=== PATIENT | female | born 2000 | race Caucasian/White ===

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

== ENCOUNTER 2018-11-13 11:07 | Emergency (ER) | payer OTHER ==
[2018-11-13 12:48] VITALS: BP 105/66
--- NOTE | 2018-11-13 13:00 | UC ---
Respiratory Complaint HPI - HPI Summary HPI Summary: The patient is a 18-year-old female with about a 2 day history of fever chills nasal congestion cough and sore throat. Last night she had his but none today. She states her chest feels tight but she has no chest pain. - History of Current Complaint Chief Complaint: UCGeneralIllness Stated Complaint: ACHES,COUGH,ST Time Seen by Provider: 11/13/18 12:45 Hx Obtained From: Patient Hx Last Menstrual Period: 10/30/18 Onset/Duration: Gradual Onset, Lasting Days Timing: Constant Severity Initially: Mild Severity Currently: Moderate Pain Intensity: 4 Pain Scale Used: 0-10 Numeric Character: Cough: Nonproductive Aggravating Factors: Nothing Associated Signs And Symptoms: Positive: Fever, Chills, Nasal Congestion - Allergies/Home Medications Allergies/Adverse Reactions: Allergies Allergy/AdvReac Type Severity Reaction Status Date / Time Sulfa (Sulfonamide Allergy Hives Verified 11/13/18 12:46 Antibiotics) PMH/Surg Hx/FS Hx/Imm Hx Previously Healthy: Yes Respiratory History: Bronchitis - Surgical History Surgical History: Yes Surgery Procedure, Year, and Place: t/a - Family History Known Family History: Positive: Hypertension Family History: family hx of HTN - Social History Alcohol Use: Occasionally Substance Use Type: None Smoking Status (MU): Never Smoked Tobacco - Immunization History Most Recent Influenza Vaccination: 2016 Most Recent Tetanus Shot: UTD Most Recent Pneumonia Vaccination: N/A Vaccination Up to Date: Yes Review of Systems All Other Systems Reviewed And Are Negative: Yes Constitutional: Positive: Fever, Chills Skin: Positive: Negative Eyes: Positive: Negative ENT: Positive: Sore Throat, Nasal Discharge, Sinus Congestion Respiratory: Positive: Cough Cardiovascular: Positive: Negative Gastrointestinal: Positive: Negative Genitourinary: Positive: Negative Motor: Positive: Negative Neurovascular: Positive: Negative Musculoskeletal: Positive: Myalgia Neurological: Positive: Negative Psychological: Positive: Negative Physical Exam Triage Information Reviewed: Yes Appearance: Well-Appearing, No Pain Distress, Well-Nourished Vital Signs: Initial Vital Signs Temp 98.9 F 11/13/18 12:44 Pulse 86 11/13/18 12:44 Resp 17 11/13/18 12:44 BP 105/66 11/13/18 12:44 Pulse Ox 99 11/13/18 12:44 Vital Signs Reviewed: Yes Eyes: Positive: Conjunctiva Clear ENT: Positive: Hearing grossly normal, Pharyngeal erythema, Nasal congestion, Nasal drainage, Uvula midline. Negative: Tonsillar swelling, Tonsillar exudate , Trismus, Muffled voice, Hoarse voice, Sinus tenderness Neck: Positive: Supple, Nontender, No Lymphadenopathy Respiratory: Positive: Lungs clear, Normal breath sounds, No respiratory distress, No accessory muscle use Cardiovascular: Positive: RRR, No Murmur, Pulses Normal Abdomen Description: Positive: Nontender Musculoskeletal: Positive: ROM Intact, No Edema Neurological: Positive: Alert Psychological Exam: Normal Skin Exam: Normal UC Diagnostic Evaluation - Laboratory O2 Sat by Pulse Oximetry: 99 - normal/not hypoxic ABG Interpretation: strep(-), influenza (-) Respiratory Course/Dx - Differential Dx/Diagnosis Provider Diagnosis: Viral upper respiratory illness Discharge - Sign-Out/Discharge Documenting (check all that apply): Patient Departure All imaging exams completed and their final reports reviewed: No Studies - Discharge Plan Condition: Stable Disposition: HOME Prescriptions: Benzonatate CAP* [Tessalon CAP*] 100 - 200 mg PO TID PRN #28 cap PRN Reason: Cough Patient Education Materials: Upper Respiratory Infection (ED) Forms: *Work Release Referrals: Azalia Magallanes MD [Primary Care Provider] - If Needed Additional Instructions: recheck in 4 days if not better - Billing Disposition and Condition Condition: STABLE Disposition: Home
== END 2018-11-13 13:32 | disposition home or self-care (01) ==
LOC: UCCORT 11:07
DX: J06.9 Acute upper respiratory infection, unspecified (principal); Z88.1 Allergy status to other antibiotic agents
CPT/HCPCS: 87651; 99212; G0463

== ENCOUNTER 2019-07-26 11:35 | Emergency (ER) | payer OTHER ==
[2019-07-26 12:38] VITALS: BP 126/67
--- NOTE | 2019-07-26 12:39 | UC ---
Allergic Reaction HPI - HPI Summary HPI Summary: 19 y/o female presents to the urgent care c/o woke up this morning with her upper lip swollen. She took Benadryl about 1hr ago with slight relief. She feels uncomfortable to smile or talk due to skin tightness. She ate a fish last night, but she has eaten fish before. She didn't go outside last night. She was studying. She denies change in make up, facial creams or lotions, eating something different, change in detergents or medications. She is allergic to sulfa, but she has not taken any medication lately. She reports she has taken e- cigarettes "[place]" for the past month, but she stop using it about 1 week ago. Denies difficulty swallowing, hoarseness, respiratory distress, SOB, chest pain, abdominal pain, N/V/d, rashes or hives. - History of Current Complaint Chief Complaint: UCGeneralIllness Stated Complaint: SKIN CONCERN Time Seen by Provider: 07/26/19 12:36 Hx Obtained From: Patient Hx Last Menstrual Period: IUD in place ?: No Onset/Duration: Sudden Onset, Lasting Hours - 4hrs woke up w/ upper lip swollen , Still Present Severity Initially: Moderate Severity Currently: Mild Pain Intensity: 0 Pain Scale Used: 0-10 Numeric Location: Discrete @ - upper lip swollen Aggravating Factor(s): Nothing Alleviating Factor(s): Antihistamines - Benadryl PO about 1hr ago Associated Signs And Symptoms: Positive: Negative. Negative: Abdominal Pain, Chest Pain, Cough Wheezing, Diaphoresis, Difficulty Breathing, Hoarseness, Lightheadedness, Nausea, Rash, Throat Tightening, Vomiting - Related Hx Possible Reaction To: Unknown - Allergies/Home Medications Allergies/Adverse Reactions: Allergies Allergy/AdvReac Type Severity Reaction Status Date / Time Sulfa (Sulfonamide Allergy Hives Verified 07/26/19 12:38 Antibiotics) Home Medications: Home Medications diphenhydrAMINE HCl [Benadryl Allergy 25 MG CAP] 25 mg PO PRN 07/26/19 [History] PMH/Surg Hx/FS Hx/Imm Hx Previously Healthy: Yes - Pt denies PMHX - Surgical History Surgical History: Yes Surgery Procedure, Year, and Place: t/a - Family History Known Family History: Positive: Hypertension Family History: family hx of HTN - Social History Occupation: Employed Full-time Lives: With Family Alcohol Use: Occasionally Substance Use Type: None Smoking Status (MU): Current Some Day Smoker Type: eCigarettes Amount Used/How Often: JUUL socially - Immunization History Most Recent Influenza Vaccination: 2016 Most Recent Tetanus Shot: UTD Most Recent Pneumonia Vaccination: N/A Vaccination Up to Date: Yes Review of Systems All Other Systems Reviewed And Are Negative: Yes Constitutional: Positive: Negative Skin: Positive: Other - upper lip swollen when she woke up Eyes: Positive: Negative ENT: Positive: Negative Respiratory: Positive: Negative Cardiovascular: Positive: Negative Gastrointestinal: Positive: Negative Genitourinary: Positive: Negative Motor: Positive: Negative Neurovascular: Positive: Negative Musculoskeletal: Positive: Negative Neurological: Positive: Negative Psychological: Positive: Negative Is Patient Immunocompromised?: No Physical Exam - Summary Physical Exam Summary: Vital Signs Reviewed: Yes General: well appearing, well nourished female adolescent in no acute apparent pain distress, sitting comfortably on examining table Eye Exam: Normal Eyes: Positive: Conjunctiva Clear - PERRLA< EOMI, fundi grossly normal ENT: Positive: Normal ENT inspection, Hearing grossly normal, Pharynx normal, No B/l tonsilar enlargement, uvula in the midline, TMs normal Neck: Positive: Supple, Nontender, No Lymphadenopathy Respiratory: Positive: Chest non-tender, Lungs clear, Normal breath sounds, No respiratory distress Cardiovascular: Positive: RRR, No Murmur, Pulses Normal, Brisk Capillary Refill Abdomen Description: Positive: Nontender, No Organomegaly, Soft. Negative: CVA Tenderness (R), CVA Tenderness (L) Bowel Sounds: Positive: Present Musculoskeletal: Positive: Strength Intact, ROM Intact, No Edema Neurological: Positive: Alert, Muscle Tone Normal Psychological Exam: Normal Skin: Positive: Positive upper lip w/ moderate swelling, no erythema, no tenderness to palpation, no drainage or breaks in the skin observed, No hives or rash observed. No facial swelling, no eye or facial drooping, pulses WNL, capillary refill brisk, sensation WNL. Triage Information Reviewed: Yes Vital Signs: Initial Vital Signs Temp 99.0 F 07/26/19 12:33 Pulse 84 07/26/19 12:33 Resp 18 07/26/19 12:33 BP 126/67 07/26/19 12:33 Pulse Ox 100 07/26/19 12:33 Allergic Reaction Course/Dx - Course Course Of Treatment: 19 y/o female presents to the urgent care c/o woke up this morning with her upper lip swollen. She took Benadryl about 1hr ago with slight relief. She feels uncomfortable to smile or talk due to skin tightness. She ate a fish last night, but she has eaten fish before. She didn't go outside last night. She was studying. She denies change in make up, facial creams or lotions, eating something different, change in detergents or medications. She is allergic to sulfa, but she has not taken any medication lately. She reports she has taken e- cigarettes "[place]" for the past month, but she stop using it about 1 week ago. Denies difficulty swallowing, hoarseness, respiratory distress, SOB, chest pain, abdominal pain, N/V/d, rashes or hives. Hx obtained. . Pt with a possible allergic reaction due to unknown allergen. Pt advised to immediately stop the medication. Pt given Methylprednisolone IM inj and Famotidine PO at the clinic. Pt Rx Prednisone PO and Benadryl PO as directed below to alleviate symptoms. Advised to f/u with her PCP or change in medication and further treatment. Pt advised if rash worsens despite medications and she develops SOB to immediately go to the ER for further treatment. D/C instructions explained. Pt understood and agreed with plan of care. - Differential Dx/Diagnosis Differential Diagnosis/HQI/PQRI: Anaphylaxis, Angioedema, Bronchospasm, Local Allergic Reaction, Jefferson-Johnsons Syndrome, Urticaria Provider Diagnosis: Allergic reaction, Swollen upper lip Discharge ED - Sign-Out/Discharge Documenting (check all that apply): Patient Departure - D/C home All imaging exams completed and their final reports reviewed: No Studies - Discharge Plan Condition: Stable Disposition: HOME Prescriptions: diPHENhydraMINE PO* [Benadryl PO 25 MG TAB*] 25 mg PO Q6H PRN #30 tab PRN Reason: lip swollen predniSONE TAB* [Deltasone 20 MG TAB*] 20 mg PO DAILY #11 tab Patient Education Materials: General Allergic Reaction (ED) Forms: *Work Release Referrals: Azalia Magallanes MD [Primary Care Provider] - 2 Days Galen Shields MD [Medical Doctor] - 3 Days Additional Instructions: 1-Please Start taking Prednisone PO taper dose starting tomorrow. first loading dose given today at the clinic. 2- Continue taking Benadryl PO to alleviate itchiness. Apply topical cream as directed. Avoid exposure to the sun. 3-If symptoms do not improve or worsen please f/u with your PCP or [facility] cutlery grinder in 2-3 days for further evaluation and treatment to find out what you are allergic to. 4- If symptoms worsen and you develop SOB or difficulty breathing please go immediately to the Er for further management. - Billing Disposition and Condition Condition: STABLE Disposition: Home
[2019-07-26] MEDS ORDERED: methylPREDNISolone 125 MG* 2 ML VIAL IM ONE (12:57)
[2019-07-26] MEDS ORDERED: Famotidine TAB* 20 MG PO ONE (13:01)
== END 2019-07-26 13:48 | disposition home or self-care (01) ==
LOC: UCCORT 11:35
DX: Z87.891 Personal history of nicotine dependence (principal); T78.40XA Allergy, unspecified, initial encounter; X58.XXXA Exposure to other specified factors, initial encounter; R22.0 Localized swelling, mass and lump, head; Z88.2 Allergy status to sulfonamides
CPT/HCPCS: 96372; 99212; A9270-GY; G0463; J2930